=== PATIENT | female | born 2000 | race Caucasian/White ===

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

== ENCOUNTER 2024-01-12 07:25 | Inpatient (IN) ==
[2024-01-12] MEDS ORDERED: CALCIUM CARBONATE 500 MG CHEWABLE TAB PO PRN (07:40)
[2024-01-12] MEDS ORDERED: ACETAMINOPHEN 325 MG TAB PO PRN (07:40)
[2024-01-12] MEDS ORDERED: OXYTOCIN 30 UNITS/NSS 30 UNITS/500 ML BAG IV PRN ×2 (07:40→17:23)
[2024-01-12] MEDS ORDERED: LIDOCAINE 1% LOCAL 20 ML VIAL INFIL PRN (07:40)
--- NOTE | 2024-01-12 08:08 | History & Physical Report ---
Date of Service January 12, 2024 Assessment & Plan (1) Encounter for induction of labor: (2) Insulin controlled gestational diabetes mellitus (GDM) during : Plan 23 y/o female at 39w 1d here for IOL: Pitocin Epidural prn AROM as indicated Monitor heart tracing, category 1 Admission and Anticipated Discharge Date Admission Date: January 12, 2024 History of Present Illness Primary Care Provider: Anirudh Laguerre MD 23 y/o female currently at 39w 1d with an TAMMI 01/18/24 as determined by LMP, who is here for IOL. complicated by: COVID POSITIVE 09/10/23 GDM on insulin *Wkly NSTs @32wks and Twice wkly @36wks *Serial growth US @28wks *Deliver by [facility] Had regular appointments with OB minimal Contractions + movement denies Fluid loss denies Vaginal bleeding External FHT and external uterine monitors used: Category 1 tracing - baseline rate 140, moderate variability, minimal uterine contractions. OB Labs: Blood Type O Positive 06/10/23 Antibody Screen NEGATIVE 06/10/23 Hemoglobin 12.6 g/dl (12.0-16.0) 11/04/23 Hematocrit 39.2 % (37.0-47.0) 11/04/23 Mean Corpuscular Volume 85.9 fL (80.0-100.0) 06/10/23 Platelet Count 228 K/uL (130-400) 06/10/23 Rubella IgG Antibody Immune (Immune) 06/10/23 Rapid Plasma Reagin Nonreactive (Nonreactive) 06/10/23 Hepatitis B Surface Antigen NEG (NEG) 11/11/17 Hepatitis B Surface Antigen. NON-REACTIVE (NON-REACTIVE) 06/10/23 Hepatitis C Antibody (EIA) NON-REACTIVE (NON-REACTIVE) 06/10/23 HIV (1&2) Ab and P24 Ag, 4th Gener NEG (NEG) 11/11/17 HIV (1&2) Ag and Ab Confirmation NON-REACTIVE (NON-REACTIVE) 06/10/23 Glucose 1 Hour 50 gm Load 162 mg/dl (70-130) H 08/05/23 OB Optional Labs: Chlamydia trachomatis RNA Not Detected (NotDetected) 06/10/23 Neisseria gonorrhoeae RNA Not Detected (NotDetected) 06/10/23 Thyroid Stimulating Hormone (TSH) 1.480 uIu/ml (0.300-4.500) 01/24/19 Alpha Fetoprotein Triple Screen SEE NOTE 12/28/17 Alpha Fetoprotein 28.2 NG/ML 12/28/17 Labs Reviewed: neg cf/sma 2017 cfdna-low risk--mln nl 16 week 2 hr gtt--akh neg afp-akh Allergies Allergy/AdvReac Type Severity Reaction Status Date / Time No Known Drug Allergies Allergy Unknown Verified 01/11/24 13:53 Home Medications Medication Instructions Recorded Confirmed Type vitamin no.167-folic acid 1 tab PO DAILY 06/03/23 01/12/24 History 400 mcg-dha 25 mg chewable tablet (One-A-Day ) acetone (urine) test (Ketone Urine #50 ea 11/14/23 01/11/24 Rx Test strips) blood sugar diagnostic (OneTouch #150 ea 11/14/23 01/11/24 Rx Verio test strips) blood-glucose meter (OneTouch #1 ea 11/14/23 01/11/24 Rx Verio Reflect Meter) lancets 33 gauge (OneTouch Delica #150 ea 11/14/23 01/11/24 Rx Plus Lancet) pen needle, diabetic 32 gauge x #50 ea 11/21/23 01/11/24 Rx 5/32" (BD Ultra-Fine Carla Pen Needle) insulin NPH isoph U-100 human 100 18 unit subcut QPM 12/26/23 01/12/24 History unit/mL (3 mL) subcutaneous pen (Novolin N FlexPen) Patient History Medical History Supervision of normal intrauterine in primigravida H/O varicella Seizure Surgical History H/O wisdom tooth extraction Family History Grandmother Diabetes Depression Mother Diabetes Depression Arthritis Endometriosis Osteoporosis History of PCOS Grandfather (Paternal) Alcoholism Cardiac disorder Grandfather (Maternal) Cardiac disorder Grandmother (Maternal) Arthritis Hypertension Osteoporosis Grandmother (Maternal) Endometriosis Denies family history of Ovarian cancer Prostate cancer Breast cancer Colorectal cancer Social History Smoking Status: Never smoker Second Hand Exposure: No; Do You Dip or Chew Tobacco: No; Hx Alcohol Use: No Hx Substance Use: No Preferred Language: Cameroonian Communication Ability: Effective Catering Server Required: No Beliefs That Will Affect Care: None marital status: marital status details: FOB:Reji Moulton (24) [phone] Mother:Amarilis Cifuentes [phone] Current Living Situation: Spouse Current Living Situation Comment: Lives spouse and other son current occupational status: employed 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 Date GA wks Lbr Lgth wt Sex Type del Anes Place Del Prov ? Comment 06/14/18 39 8lbs 11.1 oz M Epidural [facility] Dr. Zahida Irene [employer] History Last pap 05/2022 negative Review of Systems denies chest pain or SOB denies fever/chills denies RACHEL/changes in vision denies dysuria denies LE pain Physical Exam Physical Exam: General: Alert and oriented. No acute distress Cardiac: Regular rate and rhythm, no murmurs appreciated Respiratory: Lungs clear to auscultation bilaterally, No increased work of breathing Abdominal: Soft, non-tender, non-distended. Bowel sounds present. Gravid uterus. Extremities: No lower extremity edema, calves non-tender bilaterally FHT: Category 1 tracing - baseline rate 140, moderate variability Genitourinary: OB Exam Abdomen: + vertex, + estimated weight (8-9 pounds) and + irregular contractions Manual OB Exam: + cervical dilation (2- 3cm), + cervical effacement 50% and + station (-3) OB Exam Monitor Tracing: + external FHT monitor used, + external uterine monitor used, + category I and + normal FHT variability Results & Data Vital Signs (Past 12 Hours) Vital Signs Pulse BP 01/12/24 07:53 101 H 146/76 H Code Status & VTE Plan VTE Prophylaxis Plan VTE Prophylaxis will be ordered: No Supervising Physician Co-Signing Physician Notes Resident Physician Supervision Note: I interviewed and examined the patient. Discussed with Dr. Ortiz and agree with findings and plan as documented in the note. Any exceptions or clarifications are listed here: [None] Documented By: Renetta Rodrigues MD, FACOG Resident Activity Tracking Resident Involvement: Resident Care Provided Care Provided: OB Delivery
[2024-01-12 08:26] LABS: Hematocrit (blood only) 40.9 % (37.0-47.0); Hemoglobin 13.7 g/dl (12.0-16.0); Mean Corpuscular Hemoglobin 29.8 pg (25.0-34.0); Mean Corpuscular Hgb Conc 33.5 g/dL (32.0-36.0); Mean Corpuscular Volume 88.9 fL (80.0-100.0); Platelet Count 118 K/uL (130-400); RDW Coefficient of Variation 14.5 % (11.5-14.5); White Blood Count 14.31 K/ul (4.8-10.8)
[2024-01-12] MEDS: LACTATED RINGER'S 1,000 ML IV PRN (09:17)
[2024-01-12] MEDS: OXYTOCIN 30 UNITS/NSS 30 UNITS/500 ML BAG IV PRN (09:19)
[2024-01-12] MEDS ORDERED: fentaNYL citrate PF 100 MCG/2 ML VIAL EPI PRN (11:57)
[2024-01-12] MEDS ORDERED: NALOXONE HCL 1 MG in SODIUM CHLORIDE 0.9% 1,000 ML IV PRN (11:57)
[2024-01-12] MEDS ORDERED: diphenhydrAMINE 50 MG/ML VIAL IV PRN (11:57)
[2024-01-12] MEDS ORDERED: fentANYL 2 MCG/ML BUPIVacaine 0.125%-NSS 100ML BAG EPI PRN (11:57)
[2024-01-12] MEDS ORDERED: ONDANSETRON INJ 2 MG/ML 2 ML VIAL IV PRN (11:57)
[2024-01-12] MEDS ORDERED: LIDOCAINE 2% MPF LOCAL 5 ML VIAL EPI PRN (11:57)
[2024-01-12] MEDS ORDERED: BUPIVACAINE 0.25% PF 30 ML VIAL EPI PRN (11:57)
[2024-01-12] MEDS ORDERED: NALOXONE HCL 0.4 MG/1 ML VIAL/CARP IV PRN (11:57)
[2024-01-12] MEDS ORDERED: ROPIVACAINE 0.5% PF 5 MG/ML 20 ML VIAL EPI PRN (11:57)
[2024-01-12] MEDS ORDERED: ePHEDrine sulfate 50 MG/ML AMP IV PRN (11:57)
[2024-01-12] MEDS ORDERED: NALBUPHINE HCL 5 MG in SYRINGE 0 ML IV PRN (11:57)
[2024-01-12] MEDS ORDERED: SODIUM CHLORIDE 0.9% PF INJ 10 ML VIAL EPI PRN (11:57)
--- NOTE | 2024-01-12 11:57 | Anesthesiology Consultation ---
Date of Service January 12, 2024 Assessment & Plan ASA ASA3 Proposed Anesthesia Anesthesia Type: Labor Epidural Risk / Benefits Reviewed With: PT / POA / Parent / Guardian, Accepts Plan and Informed Consent Obtained History Height/Weight Height: 5 ft 3 in Weight: 102.965 kg Allergies Allergy/AdvReac Type Severity Reaction Status Date / Time No Known Drug Allergies Allergy Unknown Verified 01/11/24 13:53 Medications Home Medications Medication Instructions Recorded Confirmed Last Taken vitamin no.167-folic acid 1 tab PO DAILY 06/03/23 01/12/24 01/12/24 400 mcg-dha 25 mg chewable tablet (One-A-Day ) acetone (urine) test (Ketone Urine #50 ea 11/14/23 01/11/24 Unknown Test strips) blood sugar diagnostic (OneTouch #150 ea 11/14/23 01/11/24 Unknown Verio test strips) blood-glucose meter (OneTouch #1 ea 11/14/23 01/11/24 Unknown Verio Reflect Meter) lancets 33 gauge (OneTouch Delica #150 ea 11/14/23 01/11/24 Unknown Plus Lancet) pen needle, diabetic 32 gauge x #50 ea 11/21/23 01/11/24 Unknown 5/32" (BD Ultra-Fine Carla Pen Needle) insulin NPH isoph U-100 human 100 18 unit subcut QPM 12/26/23 01/12/24 01/11/24 unit/mL (3 mL) subcutaneous pen (Novolin N FlexPen) Active Medications Generic Name Dose Route Start Last Admin Trade Name Freq PRN Reason Stop Dose Admin Oxytocin 30 units in 500 mls @ 6 mls/hr 01/12/24 07:40 01/12/24 10:29 Pitocin 30 Units/Nss IV 01/14/24 07:39 0.36 units/hr .Q24H PRN 6 mls/hr Labor Induction/Augmentation Titration Protocol 0.36 UNITS/HR Lactated Ringer's 1,000 mls @ 125 mls/hr 01/12/24 07:40 01/12/24 12:24 Lr IV 01/14/24 07:39 999 mls/hr .Q8H PRN Administration L&D Protocol Protocol Past Medical History Medical History Supervision of normal intrauterine in primigravida H/O varicella Seizure Exercise / Class Metabolic Activity II 4-5 Yardwork/Stairs/Walk up hill Past Family History Family History Grandmother Diabetes Depression Mother Diabetes Depression Arthritis Endometriosis Osteoporosis History of PCOS Grandfather (Paternal) Alcoholism Cardiac disorder Grandfather (Maternal) Cardiac disorder Grandmother (Maternal) Arthritis Hypertension Osteoporosis Grandmother (Maternal) Endometriosis Denies family history of Ovarian cancer Prostate cancer Breast cancer Colorectal cancer Past Surgical History Surgical History H/O wisdom tooth extraction Past Anesthesia History No Hx of Anesthesia Complications and No Family Hx of Anesthesia Complications History of PONV No Hx of PONV and No Hx of Motion Sickness Social History Smoking Status: Never smoker Do You Dip or Chew Tobacco: No Hx Alcohol Use: No Hx Substance Use: No substance use type: does not use Review of Systems denies fever/cough/ colds/ chest pain/ SOB/ VASILIY denies VASILIY Physical Exam Vital Signs Last Vital Signs Temp 37.5 C 01/12/24 11:35 Pulse 93 H 01/12/24 12:43 Resp 16 01/12/24 07:46 BP 118/57 L 01/12/24 12:43 Pulse Ox 94 01/12/24 12:41 ENMT Mouth: no TMJ abnormality and no dentition abnormality Thyromental Distance: > or= 3.5 Finger Breadths Mallampati Class: II Neck neck extension not limited Respiratory normal respiratory effort; no respiratory distress Auscultation: lungs clear to auscultation bilaterally Cardiovascular Rate/Rhythm: regular rate and regular rhythm Neurologic moves all extremities Psychiatric Orientation: alert and oriented x 3 Testing Laboratory Results 01/12/24 07:54 01/12/24 01/12/24 10:28 08:20 POC Glucose 114 H 126 H
[2024-01-12] MEDS: fentANYL 2 MCG/ML BUPIVacaine 0.125%-NSS 100ML BAG ONE (12:25)
[2024-01-12] MEDS: fentaNYL citrate PF 100 MCG/2 ML VIAL ONE (12:43)
[2024-01-12] MEDS: BUPIVACAINE 0.25% PF 30 ML VIAL ONE (12:44)
[2024-01-12] MEDS: LIDOCAINE 2%/EPINEPHRINE 1:200,000 20 ML PF ONE (12:44)
[2024-01-12] MEDS: SODIUM CHLORIDE 0.9% PF INJ 10 ML VIAL ONE (12:45)
[2024-01-12] MEDS: SODIUM CHLORIDE 0.9% PF INJ 10 ML VIAL EPI STA (12:46)
[2024-01-12] MEDS: LIDOCAINE 2%/EPINEPHRINE 1:200,000 20 ML PF EPI STA (12:46)
[2024-01-12] MEDS: fentaNYL citrate PF 100 MCG/2 ML VIAL EPI STA (12:46)
[2024-01-12] MEDS: BUPIVACAINE 0.25% PF 30 ML VIAL EPI STA (12:46)
[2024-01-12] MEDS ORDERED: IBUPROFEN 600 MG TAB PO PRN (17:23)
[2024-01-12] MEDS ORDERED: HYDROCORTISONE ACETATE 25 MG SUPP PR PRN (17:23)
[2024-01-12] MEDS ORDERED: bisacodyL 10 MG SUPP PR PRN (17:23)
--- NOTE | 2024-01-12 17:40 | Delivery Summary ---
Vaginal Delivery Summary Date of Service January 12, 2024 Vaginal Delivery Summary and 1st Degree LAC Patient is a 23-year-old -0-0-1 female EDC of 01/18/2024 who presented for induction of labor because of GDM on insulin. Pitocin induction was begun per labor and delivery protocol. Membranes were ruptured for clear fluid. She received effective epidural analgesia. She progressed to full dilation and pushed effectively over intact perineum for delivery of a viable male . After the head was delivered a loose nuchal cord was reduced. Shoulders delivered easily with maternal effort. The infant was placed on the mother's abdomen for further attention and drying. After stimulation he was vigorous crying and moving all 4 limbs. The cord was clamped and cut after 1 minute. After cord blood was obtained, the placenta was expressed intact with a three- vessel cord. A first-degree vaginal laceration was repaired with 3-0 chromic in the usual fashion. Bilateral superficial labial lacerations were not bleeding and therefore not repaired. bleeding was controlled with dilute Pitocin and fundal massage. QBL is 500 mL. Mother and were doing well after delivery[place] [facility] [place] Charge Delivery Type Details: and 1st Degree LAC
--- NOTE | 2024-01-12 17:40 | Anesthesia Procedure Note ---
Date of Service January 12, 2024 Anesthesia Post Epidural Note Vital Signs Vital Signs: Temp Pulse Resp BP Pulse Ox 37.2 C 95 H 18 140/80 93 01/12/24 14:52 01/12/24 17:26 01/12/24 16:45 01/12/24 17:26 01/12/24 16:26 Notes Mental Status: alert / awake / arousable and participated in evaluation Nausea / Vomiting: adequately controlled Pain: adequately controlled Airway Patency, RR, SpO2: stable & adequate BP & HR: stable & adequate Hydration State: stable & adequate Neuraxial Anesthesia: was administered and sensory block resolved Anesthetic Complications: no major complications apparent and Pt Satisfied with anesthetic care Epidural: Removed without complications and With tip intact
[2024-01-12] MEDS: ePHEDrine sulfate 50 MG/ML AMP ONE (17:43)
[2024-01-12] MEDS: DOCUSATE SODIUM 100 MG CAP PO SCH (21:30)
[2024-01-12] MEDS: ACETAMINOPHEN 325 MG TAB PO PRN (23:02)
[2024-01-13] MEDS: DIPHTHER/TETAN/PERTUS Vaccine (Tdap, Adol/Adult) 0.5mL IM ONE (00:45)
--- NOTE | 2024-01-13 06:08 | Obstetrical Progress Note ---
Date of Service <Henrry Ortiz DO - Last Filed: 01/13/24 06:10> January 13, 2024 Assessment & Plan <Henrry Ortiz DO - Last Filed: 01/13/24 06:10> (1) Encounter for assessment: visit type: exam and care immediately after delivery Qualified Code(s): Z39.0 - Encounter for care and examination of mother immediately after delivery Plan 23 y/o PPD#1: Eating well, voiding well, ambulating well Vitals reviewed, WNL Pain well controlled with Tylenol Routine post care - OOB, ambulation, diet progression as tolerated Will have 6 week follow up with Dr. Upton <Renetta Rodrigues MD, FACOG - Last Filed: 01/13/24 07:37> (1) Encounter for assessment: Subjective <Henrry Ortiz DO - Last Filed: 01/13/24 06:10> Ambulation: ambulating normally Voiding: no voiding problems Passing Gas:: Yes Diet Tolerance:: regular diet Lochia:: Small Feeding Type:: bottle feeding pain well controlled with Tylenol Review of Systems -Denies fever or chills -Denies dyspnea, chest pain, or palpitations -Denies dysuria -Denies headache or changes in vision Physical Exam <Henrry Ortiz DO - Last Filed: 01/13/24 06:10> General: Alert and oriented. No acute distress Cardiac: Regular rate and rhythm, no murmurs appreciated Respiratory: Lungs clear to auscultation bilaterally, No increased work of breathing Abdominal: Soft, non-tender, non-distended. Bowel sounds present. Uterus: Uterine fundus firm, palpable below umbilicus Extremities: No lower extremity edema, calves non-tender bilaterally Results & Data <Henrry Ortiz DO - Last Filed: 01/13/24 06:10> Vital Signs (Past 12 Hours) Vital Signs Temp Pulse Pulse Resp BP BP Pulse Ox 01/13/24 02:40 36.6 C 89 18 101/66 97 01/12/24 22:50 36.6 C 82 18 126/77 98 01/12/24 20:30 37.1 C 98 H 18 112/74 95 01/12/24 19:41 94 H 143/72 H 01/12/24 19:26 96 H 134/79 01/12/24 19:15 18 01/12/24 19:11 108 H 141/76 H 01/12/24 18:56 95 H 167/76 H 01/12/24 18:26 100 H 134/60 01/12/24 18:11 100 H 131/62 O2 Del Method 01/13/24 02:40 Room Air 01/12/24 22:50 Room Air 01/12/24 20:30 Room Air 01/12/24 19:41 01/12/24 19:26 01/12/24 19:15 01/12/24 19:11 01/12/24 18:56 01/12/24 18:26 01/12/24 18:11 Supervising Physician <Renetta Rodrigues MD, FACOG - Last Filed: 01/13/24 07:37> Co-Signing Physician Notes Resident Physician Supervision Note: I interviewed and examined the patient. Discussed with Dr. Ortiz and agree with findings and plan as documented in the note. Any exceptions or clarifications are listed here: [None] Documented By: Renetta Rodrigues MD, FACOG Resident Activity Tracking <Henrry Ortiz DO - Last Filed: 01/13/24 06:10> Resident Involvement: Resident Care Provided Care Provided: OB Delivery
[2024-01-13 07:56] LABS: Hemoglobin 11.6 g/dl (12.0-16.0); Mean Corpuscular Hemoglobin 30.1 pg (25.0-34.0); Mean Corpuscular Hgb Conc 33.1 g/dL (32.0-36.0); Mean Corpuscular Volume 90.9 fL (80.0-100.0); Platelet Count 108 K/uL (130-400); RDW Coefficient of Variation 14.6 % (11.5-14.5); RDW Standard Deviation 47.8 fL (36.4-46.3); Red Blood Count 3.85 M/uL (4.20-5.40); White Blood Count 15.52 K/ul (4.8-10.8)
[2024-01-13] MEDS: PRENATAL VITAMIN 1 TAB PO SCH (08:16)
[2024-01-13] MEDS: BENZOCAINE 20% SPRY 85 APPLN/85 GM CAN EXT PRN (08:20)
[2024-01-13 11:28] VITALS: RESP 16; TEMP 98.2
[2024-01-13 16:42] VITALS: BP 119/78; PULSE 94; O2SAT 99
[2024-01-13] MEDS ORDERED: bisacodyL 5 MG TABEC PO SCH (20:00)
== END 2024-01-13 19:15 | disposition home or self-care (01) | DRG 807 ==
LOC: 4S1 07:25 → 4E2 20:15
DX: Z3A.39 39 weeks gestation of pregnancy; O70.0 First degree perineal laceration during delivery; Z37.0 Single live birth; O24.424 Gestational diabetes mellitus in childbirth, insulin controlled